=== PATIENT | male | born 1990 | race Hispanic/Latino ===

== ENCOUNTER 2022-02-16 15:20 | Emergency (ER) | payer SELFPAY ==
[2022-02-16 15:31] VITALS: BP 134/65; PULSE 51; RESP 16; TEMP 36; O2SAT 99
--- NOTE | 2022-02-16 15:32 | ED.WOUNDLAC ---
HPI - Wound/Laceration General Chief Complaint: Wound/Laceration Stated Complaint: cut right 2nd finger Time Seen by Provider: 02/16/22 15:32 Source: patient Mode of arrival: ambulatory Limitations: no limitations History of Present Illness HPI narrative: 31-year-old male presented for complaint of laceration to the right hand index finger after injury about 3 hours prior to arrival. He is [place]-speaking and requests his friend translate. He states he cut it on aluminum while working on a roof. They rinsed it with water and applied pressure. Bleeding is controlled, wound is gaping. He is able to move the finger. Rates pain 8/10. Unsure last tetanus. Related Data Home Medications Medication Instructions Recorded Confirmed No Home Medications 02/16/22 02/16/22 Allergies Allergy/AdvReac Type Severity Reaction Status Date / Time No Known Allergies Allergy Verified 02/16/22 15:40 Review of Systems Review of Systems: CONSTITUTIONAL: Denies body aches, fever, chills, or sweats. EYES: Denies visual changes, redness, or discharge. ENT: Denies rhinorrhea, congestion, sore throat, or otalgia. CARDIOVASCULAR: Denies chest pain, palpitations, or edema. RESPIRATORY: Denies cough or dyspnea. GASTROINTESTINAL: Denies abdominal pain, nausea, vomiting, or diarrhea. GENITOURINARY: Denies dysuria or hematuria. SKIN: Laceration right index finger MUSCULOSKELETAL: Denies back pain, joint pain, or myalgia. NEUROLOGIC: Denies headache, numbness, tingling, or weakness. PSYCH: Denies depression or anxiety. [facility] Comments At time of signature, I have reviewed and agree with nursing past medical, surgical, social and family history unless otherwise noted. Please see nursing chart for further information. There is no relevant family history pertinent to the presenting complaint Exam Narrative: GENERAL: Appears in pain. HEAD: Normocephalic, atraumatic. EYES: conjunctivae clear, and EOMI. ENT: Mucous membranes moist. Oropharynx without edema, erythema or lesions. NECK: Supple. No lymphadenopathy CHEST: Clear to auscultation. No respiratory distress. HEART: Regular rate and rhythm. SKIN: Warm, dry. Irregular laceration to palmar surface of the right second digit at the middle phalanx near DIP, full range of motion, sensation intact, no concern for tendon injury; cap refill less than 3 seconds. NEURO: Alert and oriented x3. PSYCH: Normal mood and affect Course Course Emergency Course: Patient is aware of diagnosis, understands and agrees to treatment plan. Anticipatory guidance given. Patient agrees to follow-up as directed and is aware of reasons to seek care at the emergency department. Portions of this record may have been created with voice recognition software Level of Care: Express Care Visit Vital Signs Vital signs: Vital Signs Temperature 96.8 F L 02/16/22 15:31 Pulse Rate 51 L 02/16/22 15:31 Respiratory Rate 16 02/16/22 15:31 Blood Pressure 134/65 02/16/22 15:31 Pulse Oximetry 99 02/16/22 15:31 Temperature 96.8 F L 02/16/22 15:31 Pulse Rate 51 L 02/16/22 15:31 Respiratory Rate 16 02/16/22 15:31 Blood Pressure 134/65 02/16/22 15:31 Pulse Oximetry 99 02/16/22 15:31 Reviewed Procedures Laceration Laceration 1: Date: 02/16/22 Site: hand (right 2nd digit) Size (cm): 3 Description: irregular Depth: simple, single layer Local Anesthetic: lidocaine 1% Amount of anesthesia used (mL): 5 Pre-repair: wound explored and irrigated ====== Skin Level ====== Skin layer closed with: nylon Size (cm): 5-0 Number of sutures: 5 ====== Subcutaneous Layer ====== ====== Muscle Layer ====== ====== Tendon Layer ====== Dressing: Digital Nerve block performed, additional local anesthesia applied. Pt tolerated well. Dressing applied per RN. MDM - Wound/Laceration Differential Diagnosis Differentia
[2022-02-16] MEDS: ACETAMINOPHEN 500 MG TABLET 1000 MG PO (15:46)
[2022-02-16] MEDS: TETANUS,DIPHTHERIA,AC PERTUSSIS ADULT (0.5 ML) BOOSTRIX IM (16:38)
== END 2022-02-16 16:51 | disposition home or self-care (01) ==
PROVIDERS: Emergency Provider Nurse Practitioner Family
DX: S61.211A Laceration without foreign body of left index finger without damage to nail, initial encounter (principal); W45.8XXA Other foreign body or object entering through skin, initial encounter; Y99.0 Civilian activity done for income or pay; Z23 Encounter for immunization
CPT/HCPCS: 12002; 90471; 90715; 99212; A9270; G0463